=== PATIENT | female | born 1960 | race Caucasian/White ===

== ENCOUNTER 2016-10-31 13:41 | Emergency (ER) | payer OTHER ==
[2016-10-31 13:49] VITALS: BP 120/86
--- NOTE | 2016-10-31 14:17 | UC ---
UC General HPI - HPI Summary HPI Summary: fatigue x 2 weeks hx of SLE , ? flare up of the lupus ? fever, + chills no cold sx, no cough , no abdominal pain , no n/v/d/c no urinary sx - History of Current Complaint Chief Complaint: UCGeneralIllness Stated Complaint: WEAK BODYACHES Time Seen by Provider: 10/31/16 13:50 Hx Obtained From: Patient Hx Last Menstrual Period: n/a Onset/Duration: Gradual Onset, Lasting Weeks - 2, Still Present Onset Severity: Moderate Current Severity: Severe - Allergy/Home Medications Allergies/Adverse Reactions: Allergies Allergy/AdvReac Type Severity Reaction Status Date / Time Nitrofurantoin AdvReac Intermediate stomach Verified 10/31/16 13:49 [From Macrobid] issures Erythromycin AdvReac stomach Verified 10/31/16 13:49 issues nightshade vegetables Allergy Swelling Uncoded 10/31/16 13:49 Of Face,Lips,& Throat Home Medications: Home Medications predniSONE TAB* [Deltasone TAB*] 5 mg PO DAILY 10/31/16 [History Confirmed 10/31] PMH/Surg Hx/FS Hx/Imm Hx - Additional Past Medical History Additional PMH: SLE - Surgical History Surgical History: Yes Surgery Procedure, Year, and Place: leg vein surgery, facial tumor, cervical polyps - Family History Known Family History: Positive: Other - Denies FMH of abscess Negative: Diabetes - Social History Alcohol Use: None Substance Use Type: None Smoking Status (MU): Former Smoker When Did the Patient Quit Smoking/Using Tobacco: in teens. - Immunization History Most Recent Influenza Vaccination: no Review of Systems Constitutional: Fever, Chills, Fatigue Skin: Negative Eyes: Negative ENT: Negative Respiratory: Negative Cardiovascular: Negative Is Patient Immunocompromised?: No All Other Systems Reviewed And Are Negative: Yes Physical Exam Triage Information Reviewed: Yes Appearance: Well-Appearing, No Pain Distress, Well-Nourished Vital Signs: Initial Vital Signs Temp 98.2 F 10/31/16 13:43 Pulse 70 10/31/16 13:43 Resp 16 10/31/16 13:43 BP 120/86 10/31/16 13:43 Pulse Ox 100 10/31/16 13:43 Eye Exam: Normal Eyes: Positive: Conjunctiva Clear ENT Exam: Normal ENT: Positive: Normal ENT inspection, Hearing grossly normal, Pharynx normal Neck exam: Normal Neck: Positive: Supple, Nontender, No Lymphadenopathy Respiratory Exam: Normal Respiratory: Positive: Chest non-tender, Lungs clear, Normal breath sounds Cardiovascular Exam: Normal Cardiovascular: Positive: RRR, No Murmur, Pulses Normal Abdominal Exam: Normal Abdomen Description: Positive: Nontender, Soft. Negative: CVA Tenderness (R), CVA Tenderness (L), Distended, Guarding Bowel Sounds: Positive: Present Musculoskeletal Exam: Normal Musculoskeletal: Positive: Strength Intact, ROM Intact, No Edema Neurological Exam: Normal Neurological: Positive: Alert, Muscle Tone Normal Psychological Exam: Normal Skin Exam: Normal Course/Dx - Differential Dx - Multi-Symptom Provider Diagnoses: FATIGUE Discharge - Discharge Plan Condition: Stable Disposition: HOME Patient Education Materials: Fatigue (ED) Referrals: Summer Murphy PA [Primary Care Provider] - As Soon As Possible Additional Instructions: WILL CHECK CBC, CMP, TSH, MONO , ESR CALL THE OFFICE IN ONE DAY FOR THE RESULTS
[2016-10-31 19:44] LABS: Hematocrit 38 % (35-47); Hemoglobin 12.7 g/dl (12.0-16.0); Mean Corpuscular HGB Conc 33 g/dl (31-36); Mean Corpuscular Hemoglobin 31 pg (27-31); Mean Corpuscular Volume 93 fL (80-97); Mean Platelet Volume 8 um3 (7.4-10.4); Red Blood Count 4.14 10^6/ul (4.0-5.4); Red Cell Distribution Width 14 % (10.5-15); White Blood Count 5.8 10^3/ul (3.5-10.8)
[2016-10-31 19:57] LABS: Albumin 4.4 g/dL (3.2-5.2); BUN/Creatinine Ratio 15.6 (8-20); Calcium 9.7 mg/dL (8.6-10.3); EGFR African American 99.4 (>60); EGFR Non-African American 77.3 (>60); Globulin 2.9 g/dL (2-4); Potassium 4.1 mmol/L (3.5-5.0); Total Bilirubin 0.5 mg/dL (0.2-1.0); Total Protein 7.3 g/dL (6.4-8.9)
[2016-10-31 19:59] LABS: Manual Entry Verification MER0007; Mono Internal Control QC Line Present
[2016-10-31 20:04] LABS: TSH (Thyroid Stimulating Horm) 1.36 mcIU/mL (0.34-5.60)
[2016-10-31 21:05] LABS: Erythrocyte Sed Rate 10 mm/Hr (0-30)
== END 2016-10-31 14:23 | disposition home or self-care (01) ==
LOC: UCCORT 13:41
DX: S42.034A Nondisplaced fracture of lateral end of right clavicle, initial encounter for closed fracture (principal); W19.XXXA Unspecified fall, initial encounter; Y93.9 Activity, unspecified; Y92.9 Unspecified place or not applicable; R53.83 Other fatigue; Z32.02 Encounter for pregnancy test, result negative; F12.90 Cannabis use, unspecified, uncomplicated
CPT/HCPCS: 36415; 80053; 84443; 85025; 85652; 86308; 99211; G0463

== ENCOUNTER 2017-11-20 08:25 | Emergency (ER) | payer OTHER ==
[2017-11-20 08:40] VITALS: BP 130/90
--- NOTE | 2017-11-20 08:54 | UC ---
Respiratory Complaint HPI - HPI Summary HPI Summary: left side chest pain and fever x 1 day + cough , fatigue, no cold symptoms. chest pain is worse with deep breathing , no shortness of breath - History of Current Complaint Chief Complaint: UCChestPain Stated Complaint: FEVER LEFT ARM/SHOULDER/CHEST BACK PAIN Time Seen by Provider: 11/20/17 08:43 Hx Obtained From: Patient Hx Last Menstrual Period: n/a Onset/Duration: Gradual Onset, Lasting Days - 1, Still Present Timing: Constant Severity Initially: Moderate Severity Currently: Moderate Pain Intensity: 7 Character: Cough: Nonproductive Aggravating Factors: Exertion, Deep Breaths Alleviating Factors: Nothing Associated Signs And Symptoms: Positive: Fever, Chills, Pleuritic Chest Pain. Negative: Wheezing, Hemoptysis, Dizziness, Calf Pain, Calf Swelling, Edema, URI , Nasal Congestion, Hoarseness, Sinus Discomfort - Allergies/Home Medications Allergies/Adverse Reactions: Allergies Allergy/AdvReac Type Severity Reaction Status Date / Time erythromycin base Allergy GI Upset Verified 11/20/17 08:38 nitrofurantoin Allergy GI Upset Verified 11/20/17 08:38 nightshade vegetables Allergy Swelling Uncoded 10/31/16 13:49 Of Face,Lips,& Throat Home Medications: Home Medications Acetaminophen [Acetaminophen Extra Strength] 1,000 mg PO Q8H 11/20/17 [History Confirmed 11/20/17] PMH/Surg Hx/FS Hx/Imm Hx - Additional Past Medical History Additional PMH: lupus, fibromyalgia Cardiovascular History: Hypertension - Surgical History Surgical History: Yes Surgery Procedure, Year, and Place: leg vein surgery, facial tumor, cervical polyps - Family History Known Family History: Positive: Other - Denies FMH of abscess Negative: Diabetes - Social History Alcohol Use: None Substance Use Type: None Smoking Status (MU): Former Smoker When Did the Patient Quit Smoking/Using Tobacco: in teens. - Immunization History Most Recent Influenza Vaccination: no Review of Systems Constitutional: Fever, Chills, Fatigue Skin: Negative Eyes: Negative ENT: Negative Respiratory: Cough Cardiovascular: Chest Pain Gastrointestinal: Negative Is Patient Immunocompromised?: No All Other Systems Reviewed And Are Negative: Yes Physical Exam Triage Information Reviewed: Yes Appearance: Well-Appearing, No Pain Distress, Well-Nourished Vital Signs: Initial Vital Signs Temp 98.3 F 10/09/18 08:31 Pulse 97 11/20/17 08:31 Resp 20 11/20/17 08:31 BP 130/90 11/20/17 08:31 Pulse Ox 100 11/20/17 08:31 Vital Signs Reviewed: Yes Eye Exam: Normal Eyes: Positive: Conjunctiva Clear ENT: Positive: Normal ENT inspection, Hearing grossly normal, Pharynx normal Neck exam: Normal Neck: Positive: Supple, Nontender, No Lymphadenopathy Respiratory: Positive: Chest non-tender, No accessory muscle use, Crackles - left lower lungs. Negative: No respiratory distress, Respiratory distress, Decreased breath sounds, Accessory muscle use Cardiovascular: Positive: RRR, No Murmur, Pulses Normal Abdominal Exam: Normal Abdomen Description: Positive: Nontender, Soft Skin Exam: Normal UC Diagnostic Evaluation - Laboratory O2 Sat by Pulse Oximetry: 100 Diagnostic Studies Comment: chest xray : IMPRESSION: QUESTIONABLE CONSOLIDATION INVOLVING SOME OR ALL OF THE RIGHT MIDDLE LOBE WHICH COULD BE. PNEUMONIA IN THE CORRECT CLINICAL SETTING. RECOMMEND EITHER CT OF THE CHEST WITH CONTRAST. FOR SUPERIOR CHARACTERIZATION OR FOLLOW-UP CHEST X-RAY AFTER AN APPROPRIATE COURSE OF. THERAPY TO DETERMINE RESOLUTION. Respiratory Course/Dx - Differential Dx/Diagnosis Provider Diagnoses: pneumonia Discharge - Sign-Out/Discharge Documenting (check all that apply): Patient Departure All imaging exams completed and their final reports reviewed: Yes - Discharge Plan Condition: Stable Disposition: HOME Prescriptions: DOXYcycline CAP(*) [DOXYcycline 100MG CAP(*)] 100 mg PO BID #20 cap Patient Education Materials: Pneumonia (ED) Referrals: Summer Murphy PA [Primary Care Provider] - 5 Days - Billing Disposition and Condition Condition: STABLE Disposition: Home
--- NOTE | 2017-11-20 09:38 | RAD ---
INDICATION: Cough and fever COMPARISON: None TECHNIQUE: PA and lateral views of the chest were obtained. FINDINGS: The heart and mediastinum are normal in size and contour. On the AP view the lungs appear well aerated. On the lateral view there is faint density corresponding to the location of the right middle lobe. There is no evidence of large pleural effusion. Visualized bones are normal for the patient's age. There is no radiographic evidence of free air beneath the diaphragm IMPRESSION: QUESTIONABLE CONSOLIDATION INVOLVING SOME OR ALL OF THE RIGHT MIDDLE LOBE WHICH COULD BE PNEUMONIA IN THE CORRECT CLINICAL SETTING. RECOMMEND EITHER CT OF THE CHEST WITH CONTRAST FOR SUPERIOR CHARACTERIZATION OR FOLLOW-UP CHEST X-RAY AFTER AN APPROPRIATE COURSE OF THERAPY TO DETERMINE RESOLUTION.
== END 2017-11-20 09:56 | disposition home or self-care (01) ==
LOC: UCCORT 08:25
DX: J18.9 Pneumonia, unspecified organism (principal); Z88.1 Allergy status to other antibiotic agents
CPT/HCPCS: 71046; 93005; 99212; G0463

== ENCOUNTER 2018-05-18 14:13 | Emergency (ER) | payer OTHER ==
--- OUTSIDE RECORDS SUMMARY | 2018-05-18 14:23 | XMS REPORT | Continuity of Care Document ---
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 Payers Date Identification Numbers Payment Provider Subscriber Effective: 2017 Policy Number: [id number] [facility] Deena Castillo PayID: [id number] [address] [address] [place] [address] Effective: 2014 Policy Number: [id number] [facility] Mich Castillo Expires: 2017 PayID: [id number] [address] [place] [address] Policy Number: [id number] [facility] Deena Castillo Group Name: [employer] [address] [address] PayID: [id number] [place] [address] Advance Directives Description No Information Available Problems Date Description Provider Status Onset: 03/19/2012 Epidermoid cyst Active Onset: 03/19/2012 Temporomandibular joint disorder Active Onset: 03/19/2012 Essential hypertension Active Onset: 03/19/2012 Raynaud's disease Active Onset: 03/19/2012 Anxiety state Active Family History Date Family Member(s) Observation Comments General Heart/DM/HTN/Lung Cancer Father Father due to ALS Mother Mother due to Dementia Social History Type Date Description Comments Sex Unknown Marital Status 2 Times Lives With Spouse Pets 1 cat Pets 1 dog Hand Dominance Right-handed ETOH Use Rarely consumes alcohol Tobacco Use Reviewed: 12/13/15 Patient has never smoked Recreational Drug Use Never Used Drugs Smoking Status Reviewed: 04/30/18 Patient has never smoked Tattoo/Piercing Pierced ears Allergies, Adverse Reactions, Alerts Date Description Reaction Status Severity Comments 02/15/2018 Potatoes/Tomatoes /Night Shade Veggies Active 02/15/2018 Paroxetine Active 02/15/2018 Nitrofurantoin, Macrocrystals / Active Nitrofurantoin, Monohydrate Medications Medication Date Status Form Strength Qnty SIG Indications Ordering Provider Estrace 06/20 Active Cream 0.1mg/GM Brenden avilez MD [facility] Omeprazole 04/08 Active Tablets 20mg 30tab one pill R05 DR smart daily Brenden avilez MD Valacyclovir HCL 03/31 Active Tablets 500mg 6tabs one tablet B00.89 twice a Castellan day for 3 os, MD kunz Hydroxychloroquine 04/22 Active Tablets 200mg 1 po bid Brenden avilez MD Epipen 2-Darian 04/22 Active Solution 0.3mg/0.3 Auto-Inje ML Brenden ct os, Xyzal 04/22 Active Tablets 5mg 30tab 1 po qd s Brenden avilez MD Xopenex HFA 04/22 Active Aerosol 45mcg/Act 3unit 2 puffs by s mouth Castellan every 4 os, hours as needed Amlodipine Besylate 00 Active Tablets 5mg Unknown /0000 Prilosec OTC 11/28 Hx Tablets 20mg 30tab [address] smart every day Brenden avilez MD 04/30 Doxycycline 11/28 Hx Capsules 100mg 14cap 1 by mouth J18.9 s twice a Castellan - day MD fatmata 04/30 Ciprofloxacin HCL 05/09 Hx Tablets 500mg 20tab 1 by mouth N39.0 s twice a Castellan - day MD fatmata 11/29 Ciprofloxacin HCL 11/21 Hx Tablets 500mg 20tab 1 by mouth N39.0 s twice a Castellan - day MD fatmata 12/12 Augmentin 01/12 Hx Tablets 875-125mg 20tab one twice J20.9 s a day Fitzellan - withfood MD fatmata 04/08 Vagifem 07/14 Hx Tablets 10mcg 627.3 Brenden avilez MD 06/20 Amoxicillin 08/26 Hx Tablets 875mg 20tab 1 by mouth 682.9 s twice a Brenden avilez MD 03/31 Nexium 06/09 Hx Capsules 40mg 30cap [address] smart every day Brenden avilez MD 07/05 Amoxicillin 06/07 Hx Tablets 875mg 20tab 1 po bid 463 bing avilez MD 04/22 Norvasc 03/27 Hx Tablets 2.5mg increased to 5 mgm Castellan - 1 po qd MD fatmata 04/24 Immunizations CPT Code Status Date Vaccine Lot # [id number] Given 07/03/1998 Tetanus And Diptheria (Td) For Adult Use Preservative Free Vital Signs Date Vital Result Comment 04/30/2018 11:02am Height 68 inches 5'8" Weight 142.00 lb BP Systolic Sitting 112 mmHg BP Diastolic Sitting 60 mmHg Respiratory Rate 12 /min Body Temperature 98.8 F BMI (Body Mass Index) 21.6 kg/m2 11/28/2017 10:38am Weight 140.00 lb Heart Rate 88 /min BP Systolic 122 mmHg BP Diastolic 68 mmHg Respiratory Rate 16 /min 05/09/2017 9:28am Weight 138.00 lb BP Systolic 106 mmHg BP Diastolic 70 mmHg Body Temperature 99.0 F 04/24/2017 1:27pm Height 68 inches Weight 138.00 lb BP Systolic 120 mmHg BP Diastolic 60 mmHg Respiratory Rate 12 /min Body Temperature 98.0 F BMI (Body Mass Index) 21.0 kg/m2 11/13/2016 11:38am Weight 139.00 lb BP Systolic 100 mmHg BP Diastolic 60 mmHg 06/20/2016 11:13am Weight 142.00 lb BP Systolic 110 mmHg BP Diastolic 60 mmHg 12/14/2015 2:13pm Weight 138.00 lb BP Systolic 100 mmHg BP Diastolic 60 mmHg Body Temperature 98.4 F 12/13/2015 9:33am Weight 138.00 lb BP Systolic 104 mmHg BP Diastolic 64 mmHg Body Temperature 97.6 F 11/22/2015 3:54pm Weight 138.00 lb BP Systolic 110 mmHg BP Diastolic 88 mmHg 04/08/2015 1:17pm Height 68. inches Weight 134.00 lb Heart Rate 60 /min BP Systolic 108 mmHg BP Diastolic 70 mmHg Respiratory Rate 12 /min Body Temperature 98.8 F BMI (Body Mass Index) 20.4 kg/m2 01/12/2015 8:47am Weight 134.00 lb BP Systolic 108 mmHg BP Diastolic 70 mmHg 09/29/2014 1:26pm Weight 131.00 lb BP Systolic 110 mmHg BP Diastolic 60 mmHg 07/14/2014 11:05am Weight 138.00 lb BP Systolic 110 mmHg BP Diastolic 60 mmHg 04/07/2014 1:49pm Height 68 inches Weight 141.00 lb Heart Rate 68 /min BP Systolic 118 mmHg BP Diastolic 60 mmHg Respiratory Rate 12 /min Body Temperature 98.7 F BMI (Body Mass Index) 21.4 kg/m2 03/31/2014 9:00am Weight 140.00 lb Heart Rate 83 /min BP Systolic 120 mmHg BP Diastolic 76 mmHg Body Temperature 98.6 F 03/03/2014 1:28pm Weight 140.00 lb BP Systolic 120 mmHg BP Diastolic 78 mmHg 02/19/2014 8:40am Weight 139.00 lb BP Systolic 118 mmHg BP Diastolic 80 mmHg Body Temperature 97.3 F 08/26/2013 10:28am Weight 141.00 lb BP Systolic 112 mmHg BP Diastolic 60 mmHg 06/09/2013 4:09pm Weight 145.00 lb BP Systolic 110 mmHg BP Diastolic 68 mmHg Body Temperature 98.9 F 04/22/2012 2:06pm Height 68 inches Weight 138.00 lb Heart Rate 68 /min BP Systolic 118 mmHg BP Diastolic 76 mmHg Respiratory Rate 14 /min Body Temperature 98.8 F BMI (Body Mass Index) 21.0 kg/m2 03/13/2012 11:08am Weight 139.00 lb BP Systolic 110 mmHg BP Diastolic 60 mmHg Body Temperature 98.9 F 06/08/2011 10:28am Weight 140.00 lb Body Temperature 98.7 F 03/27/2011 10:11am Height 67.6 inches Weight 140.00 lb BP Systolic 118 mmHg BP Diastolic 60 mmHg BMI (Body Mass Index) 21.5 kg/m2 Results Test Date Facility Test Result H/L Range Note Laboratory test 05/29/2017 N2N/CCD Import Urine Culture And See Result 1, 2 finding Sensitivities Below Laboratory test 05/09/2017 N2N/CCD Import Urine Culture And See Result 3, 4 finding Sensitivities Below Laboratory test 04/24/2017 N2N/CCD Import Occult Blood Stool Negative finding QN Immunolo Laboratory test 10/31/2016 N2N/CCD Import Erythrocyte Sed 10 mm/Hr 0-30 5, 6 finding Rate Monospot Negative 7 TSH (Thyroid Stimulating Horm) 1.36 mcIU/mL 0.34-5.6 8 CBC Auto Diff 10/31/2016 N2N/CCD Import Abs Basophils 0.1 10^3/uL 0-0.2 Abs Eosinophils 0 10^3/uL 0-0.6 Abs Lymphocytes 1.0 10^3/uL 1-4.8 Abs Monocytes 0.1 10^3/uL 0-0.8 Abs Neutrophils 4.5 10^3/uL 1.5-7.7 Abs Nucleated RBC 0 10^3/uL Basophil % 0.9 % 0-2 Eosinophil % 0.2 % 0-6 Granulocyte % 78.4 % 38-83 Hematocrit 38 % 35-47 Hemoglobin 12.7 g/dL 12-16 Lymphocyte % 18.0 % Low 25-47 Mean Corpuscular HGB Conc 33 g/dL 31-36 Mean Corpuscular Hemoglobin 31 pg 27-31 Mean Corpuscular Volume 93 fL 80-97 Mean Platelet Volume 8 um3 7.4-10.4 Monocyte % 2.5 % 1-9 Nucleated Red Blood Cells % 0 1 Platelet Count 290 10^3/uL 150-450 Red Blood Count 4.14 10^6/uL 4-5.4 Red Cell Distribution Width 14 % 10.5-15 White Blood Count 5.8 10^3/uL 3.5-10.8 Comp Metabolic Panel 10/31/2016 N2N/CCD Import Albumin 4.4 g/dL 3.2-5.2 Albumin/Globulin Ratio 1.5 1 1-3 Alkaline Phosphatase 50 U/L 34-104 Alt 12 U/L 7-52 Anion Gap 6 mmol/L 2-11 Ast 20 U/L 13-39 BUN/Creatinine Ratio 15.6 1 8-20 Blood Urea Nitrogen 12 mg/dL 6-24 Calcium 9.7 mg/dL 8.6-10.3 Chloride 103 mmol/L 101-111 Co2 Carbon Dioxide 29 mmol/L 22-32 Creatinine 0.77 mg/dL 0.51-0.95 Egfr 99.4 1 9 Egfr Non- 77.3 1 Globulin 2.9 g/dL 2-4 Glucose 98 mg/dL 70-100 Potassium 4.1 mmol/L 3.5-5 Sodium 138 mmol/L 133-145 Total Bilirubin 0.50 mg/dL 0.2-1 Total Protein 7.3 g/dL 6.4-8.9 Imaging finding 06/20/2016 N2N/CCD Import thorarcic spine <pending> series Laboratory test 12/20/2015 N2N/CCD Import Urine Culture And See Result 10, 11 finding Sensitivities Below Laboratory test 12/13/2015 N2N/CCD Import Urine Culture And See Result 12, 13 finding Sensitivities Below Laboratory test 11/22/2015 N2N/CCD Import @[facility] Pat Id: [id number] finding @EMR Req #: [id number] 1 Culture If Indicated Comment Culture To Follo <See Note> 14 Source: Urine, Clean Cat <See Note> 15 Urinalysis With Microscopic 11/22/2015 N2N/CCD Import @[facility] Pat Id: [id number] @[facility] Req #: [id number] 1 Source: Urine, Clean Cat <See Note> 16 Urine Amorph Sediment Moderate Urine Bacteria Few Urine Bilirubin - Dipstick Moderate Abnormal Urine Blood Moderate Abnormal Urine Clarity Cloudy Urine Color Red Urine Epithelial Cells Many /lpf 17 Urine Glucose - Dipstick 250 mg/dL High Urine Ketone Trace mg/dL High Urine Leuk Esterase Moderate Abnormal Urine Mucus Small Urine Nitrite - Dipstick Positive Abnormal Urine PH 5.0 1 Low 6.5-7.5 Urine Protein - Dipstick 100 mg/dL High Urine RBC 10-20 rbc/hpf High 0-2 Urine Specific [place] >=1.030 1.01-1.03 Urine Urobilinogen - Dipstick >=8.0 E.U./dL High 0.2-1 Urine WBC > 50 wbc/hpf High 0-7 Liver Function Tests 04/09/2015 N2N/CCD Import Alb/Glob 1.1 ratio Albumin 3.8 g/dL 3.4-5 Alkaline Phosphatase 58 U/L 45-117 Bilirubin,Direct < 0.1 mg/dL 0-0.2 Bilirubin,Indirect 0.2 mg/dL 0-0.9 Bilirubin,Total 0.3 mg/dL 0.2-1 Globulin 3.6 g/dL 1.9-4.3 SGPT/Alt 26 U/L 12-78 Sgot/Ast 17 U/L 15-37 Total Protein 7.4 g/dL 6.4-8.2 LDL Cholesterol Profile 04/09/2015 N2N/CCD Import Cholesterol 208 mg/dL High 18 HDL Cholesterol 96 mg/dL 19 LDL-Cholesterol 105 mg/dL 20 Triglycerides 36 mg/dL 21 CBC W/Automated Diff 04/09/2015 N2N/CCD Import Bas% 1.2 % High 0-1.1 Baso # 0.05 K/uL 0-0.1 Eo% 6.5 % 0-6.6 Eos # 0.26 K/uL 0-0.5 Hematocrit 39.1 % 36-46.1 Hemoglobin 13.0 gm/dL 11.6-15.8 Lymph # 1.53 K/uL Low 1.8-7 Lymph % 38.0 % 17-46.1 Mean Cell Volume 92.9 fl 80.9-99 Mean Corpuscular HGB 30.9 pg 25.9-32.7 Mean Corpuscular HGB Conc 33.2 g/dL 30.8-34.3 Mean Platelet Volume 9.4 fL 8.9-12.4 [place] # 0.31 K/uL 0.3-0.9 [place] % 7.7 % 4.3-13.2 Neut# 1.88 K/uL 1.8-7 Neut% 46.6 % 40.4-72.8 Platelet Count 274 K/uL 155-360 Red Blood Count 4.21 M/uL 3.9-5.4 Red Cell Distri Width %CV 13.1 % 11.7-14.4 Red Cell Distri Width SD 44.0 fl 3-47 White Blood Count 4.0 K/uL 3.1-10.7 Basic Metabolic Panel 04/09/2015 N2N/CCD Import Anion Gap 6 mEq/L Low 8- 16 BUN 16 mg/dL 7-18 BUN/Creat 20.0 ratio Calcium 8.7 mg/dL 8.5-10.1 Carbon Dioxide 28 mmol/L 21-32 Chloride 107 mmol/L 98-107 Creatinine 0.8 mg/dL 0.6-1.3 Glom Filtration Rate, Estimate >60 mL/min Glucose 91 mg/dL 74-106 If >60 mL/min 22 Potassium 4.2 mmol/L 3.5-5.1 Sodium 141 mmol/L 136-145 HSV 1/2 PCR 03/31/2014 N2N/CCD Import HSV-1 Dna Negative HSV-2 Dna Negative 23 Laboratory test 03/31/2014 N2N/CCD Import Herpes Culture See Note 24 finding Urine Culture And 03/24/2014 N2N/CCD Import Urine Culture (See Note) 25 Sensitivities Laboratory test 02/19/2014 N2N/CCD Import Urine Culture See Note 26 finding Laboratory test 09/05/2013 N2N/CCD Import Urine Culture See Note 27 finding Laboratory test 06/09/2013 N2N/CCD Import TSH Reflex FT4 1.46 uIU/mL 0.49-4 28 finding and/or FT3 .67 Laboratory test 03/19/2012 N2N/CCD Import Cyst, Cutaneous See Note 29 finding Laboratory test 06/08/2011 N2N/CCD Import Throat Strep See Note 30 finding Screen Laboratory test 05/23/2011 N2N/CCD Import Antinuclear See patterns 31 finding Antibodies, Ifa Hla-B27 Disease Association See Note 32 Note See Note 33 Rheumatoid Factor Screen Negative Sedimentation Rate 8 mm/hr 0-30 Speckled Pattern 1:80 Uric Acid 1.6 mg/dL Low 2.1-7.4 CBC 05/23/2011 N2N/CCD Import Hematocrit 34.6 % Low 36-46.1 Hemoglobin 11.7 gm/dL 11.6-15.8 Mean Cell Volume 91.1 fl 80.9-99 Mean Corpuscular HGB 30.8 pg 25.9-32.7 Mean Corpuscular HGB Conc 33.8 g/dL 30.8-34.3 Mean Platelet Volume 10.0 fL 8.9-12.4 Platelet Count 260 K/uL 155-360 Red Blood Count 3.80 M/uL Low 3.9-5.4 Red Cell Distri Width %CV 13.1 % 11.7-14.4 White Blood Count 4.9 K/uL 3.1-10.7 Fungal Culture With 04/13/2011 N2N/CCD Import Fungal Culture; Other See Note 34 Smear Sources Fungal Fluorochrome Stain See Note 35 1 [id number] SEE RESULT BELOW Name: DEENA CASTILLO DOB: [address]: Summer BOURGEOIS Acct: [id number] Unit: [id number] AGE: 57 Location: [facility] Re05/29/17 SEX: F Status: REG REF SPEC: [id number] ROLANDO: 05/29/17-[address] [facility] [address]: Summer BOURGEOIS REQ: [id number] RECD: 05/29/17 STATUS: COMP _ SOURCE: URINE SPDESC: ORDERED: Urine Culture COMMENTS: [id number] QUERIES: Urine Source: Random Procedure Result Reported Site Urine Culture Final 06/02/17- 1400 ML Organism 1 ENTEROCOCCUS FAECALIS Lorman Count 25-50,000 (Moderate) CFU/ML Organism 2 BIFIDOBACTERIUM SPECIES Lorman Count 75-100,000 (Many) CFU/ML BIFIDOBACTERIUM SPECIES - PRESUMPTIVE IDENTIFICATION 1. ENTEROCOCCUS FAECALIS M.I.C. RX --------- ------ Ampicillin <=2 S Penicillin 2 S Ciprofloxacin <=0.5 S Gentamicin High Level S Levofloxacin 1 S Linezolid 2 S Nitrofurantoin <=16 S * Quinupristin/Dalfopristin 8 R * Streptomycin High Level S Tetracycline >=16 R Tigecycline <=0.12 S Vancomycin 1 S Imipenem-Deduced S * Ampicillin/Sulbactam-Deduced S CONTINUED ON NEXT PAGE DEPARTMENT OF PATHOLOGY, [address] [place] [address] Nate Pickard M.D. Director [facility] # [id number] Patient: DEENA CASTILLO [id number] (Continued) Specimen: [id number] Collected: 05/29/17 Received: 05/29/17 (Continued) Procedure Result Reported Site Urine Culture Final (continued) * These antibiotics are not available in the [facility] Formulary Contact the Microbiology Department for any additional antibiotic reporting. * ML - [facility] . END OF REPORT DEPARTMENT OF PATHOLOGY, [address] [place] [address] Nate Pickard M.D. Director [facility] # [id number] 3 [id number] SEE RESULT BELOW Name: DEENA CASTILLO : [address]: Summer BOURGEOIS Acct: [id number] Unit: [id number] AGE: 57 Location: [facility] Re05/09/17 SEX: F Status: REG REF SPEC: [id number] ROLANDO: 05/09/17-[address]: Summer BOURGEOIS REQ: [id number] RECD: 05/09/17 STATUS: COMP _ SOURCE: URINE [facility]: ORDERED: Urine Culture COMMENTS: [id number] QUERIES: Urine Source: Random Procedure Result Reported Site Urine Culture Final 05/11/17- 0803 ML Organism 1 ENTEROCOCCUS FAECALIS Lorman Count >100,000 (Many) CFU/ML 1. ENTEROCOCCUS FAECALIS M.I.C. RX --------- ------ Ampicillin <=2 S Penicillin 4 S Ciprofloxacin 1 S Gentamicin High Level S Levofloxacin 1 S Linezolid 2 S Nitrofurantoin <=16 S * Quinupristin/Dalfopristin 8 R * Streptomycin High Level S Tetracycline >=16 R Tigecycline <=0.12 S Vancomycin 1 S Imipenem-Deduced S * Ampicillin/Sulbactam-Deduced S * These antibiotics are not available in the [facility] Formulary Contact the Microbiology Department for any additional antibiotic reporting. * ML - Main Lab . END OF REPORT DEPARTMENT OF PATHOLOGY, [address] [place] [address] Nate Pickard M.D. Director [facility] # [id number] 5 [id number] 9 Because ethnic data is not always readily available, this report includes an eGFR for both -Americans and non- Americans. The National Kidney Disease Education Program (NKDEP) does not endorse the use of the MDRD equation for patients that are not between the ages of 18 and 70, are , have extremes of body size, muscle mass, or nutritional status, or are non- or non-. According to the National Kidney Foundation, irrespective of diagnosis, the stage of the disease is based on the level of kidney function: Stage Description GFR(mL/min/1.73 m(2)) 1 Kidney damage with normal or decreased GFR 90 2 Kidney damage with mild decrease in GFR 60-89 3 Moderate decrease in GFR 30-59 4 Severe decrease in GFR 15-29 5 Kidney failure <15 (or dialysis) 10 [id number] 11 SEE RESULT BELOW Name: DEENA CASTILLO : [address]: Summer BOURGEOIS Acct: [id number] Unit: [id number] AGE: 55 Location: [facility] Re12/20/15 SEX: F Status: REG REF SPEC: [id number] ROLANDO: 12/20/15-[address]: Summer BOURGEOIS REQ: [id number] RECD: 12/20/15935 STATUS: COMP _ SOURCE: URINE SPDESC: ORDERED: Urine Culture COMMENTS: [id number] Procedure Result Reported Site Urine Culture Final 12/21/15- 1618 ML No Growth (<1,000 CFU/mL) * ML - MAIN LAB ([facility]) . END OF REPORT * ML=Testing performed at Main Lab DEPARTMENT OF PATHOLOGY, [address] [place] [address] Nate Pickard M.D. Director [facility] # [id number] 12 [id number] 13 SEE RESULT BELOW Name: DEENA CASTILLO : [address]: Summer BOURGEOIS Acct: [id number] Unit: [id number] AGE: 55 Location: [facility] Re12/13/15 SEX: F Status: REG REF SPEC: [id number] ROLANDO: 12/13/15-[address] [facility] [address]: Summer BOURGEOIS REQ: [id number] RECD: 12/13/15 STATUS: COMP _ SOURCE: URINE SPDESC: ORDERED: Urine Culture COMMENTS: [id number] Procedure Result Reported Site Urine Culture Final 12/14/15- 1229 ML No Growth (<1,000 CFU/mL) * ML - MAIN LAB ([facility]) . END OF REPORT * ML=Testing performed at Main Lab DEPARTMENT OF PATHOLOGY, [address] [place] [address] Nate Pickard M.D. Director [facility] # [id number] CULTURE TO FOLLOW 15 URINE, CLEAN CATCH 16 URINE, CLEAN CATCH 17 POSSIBLE UROGENITAL CONTAMINATION. 18 Reference Guidelines*: Desirable: ........... < 200 mg/dL Borderline High: ..... 200-239 mg/dL High: ................ >=240 mg/dL * The National Cholesterol Education Program (NCEP) 19 Reference Guidelines*: Low HDL: ..... < 40 mg/dL Normal: ..... 40-60 mg/dL Desirable: ... > 60 mg/dL *The National Cholesterol Education Program(NCEP) 20 Reference Guidelines*: Optimal:........... <100 mg/dL Near Optimal....... 100-129 mg/dL Borderline High.... 130-159 mg/dL High............... 160-189 mg/dL Very High.......... >=190 mg/dL * Source: National Cholesterol Education Program (NCEP) 21 Reference Guidelines*: Normal: ............. < 150 mg/dL Borderline High: .... 150-199 mg/dL High: ............... 200-499 mg/dL Very High: .......... > 500 mg/dL * Source: National Cholesterol Education Program (NCEP) 22 Note: Persistent reduction for 3 months or more in an eGFR <60 mL/min/1.73 m2 defines CKD. Patients with eGFR values >/=60 mL/min/1.73 m2 may also have CKD if evidence of persistent proteinuria is present. The original MDRD equation for estimated GFR is not valid for patients less than 18 years of age. Additional information may be found at www.kdoqi.org. 23 This test was developed and its performance characteristics determined by [employer]. It has not been cleared or approved by the U.S. Food and Drug Administration. The FDA has determined that such clearance or approval is not necessary. This test is used for clinical purposes. It should not be regarded as investigational or research. Performed at: [address] [id number] Gamero[employer] Technician: Irvin Braxton MD, Phone: [phone] 24 REFERENCE LAB#: Positive for Herpes simplex virus type-2. Typing was confirmed by monoclonal antibody microscopic immunofluorescence. Performed at: [address] [id number] Gamero[employer] Technician: Flower Ohara MD, Phone: [phone] 25 RUN DATE: 03/26/14 [facility] LAB LIVE PAGE 1 RUN TIME: [address] [place] [id number] Specimen Inquiry Name: DEENA CASTILLO : [address]: Yoel Blandon MD Acct: [id number] Unit: [id number] AGE: 54 Location: [facility] Re03/24/14 SEX: F Status: REG REF SPEC: [id number] ROLANDO: 03/24/[address] [facility] [address]: Yoel Blandon MD REQ: [id number] RECD: 03/24/14 STATUS: JAILYN ARREOLA DR: Summer BOURGEOIS _ [facility] ORDERED: Urine Culture QUERIES: Urine Source: Random Procedure Result Verified Site Urine Culture Final 03/26/14- 1029 ML Organism 1 ESCHERICHIA COLI Lorman Count >100,000 (Many) CFU/ML 1. ESCHERICHIA COLI M.I.C. RX --------- ------ Ampicillin <=2 S Cefazolin <=4 S Cefepime <=1 S Ceftriaxone <=1 S Ciprofloxacin <=0.25 S Gentamicin <=1 S Levofloxacin <=0.12 S Meropenem <=0.25 S Nitrofurantoin <=16 S Tetracycline <=1 S Pipercillin/Tazobactam <=4 S Trimethoprim/Sulfamethoxazole <=20 S Amoxicillin/Clavulanic Acid <=2 S Aztreonam <=1 S Contact the Microbiology Department for any additional antibiotic reporting. END OF REPORT * ML=Testing performed at Main Lab DEPARTMENT OF PATHOLOGY, [address] [place] [address] Nate Pickard M.D. Director [facility] # [id number] 26 Organism 1 ! URETHRAL AN Quantity ! 50,000 - 100,000 CFU/mL 27 COLONY COUNT ! >100,000 CFU/ml Organism 1 ! ENTEROCOCCUS FAECALIS QUANTITY ! MANY Organism 2 ! MIXED URETHRAL AN ENTEROCOCCUS FAECALIS Target Route Dose M.I.C. RX AB COST ------ ----- -------- ------ -- ------ PENICILLIN G 4 S TETRACYCLINE >=16 R NITROFURANTOIN <=16 S AMPICILLIN <=2 S AMOXICILLIN S AMOXICILLIN/CLAVULANATE S AMPICILLIN/SULBACTAM S CIPROFLOXACIN <=0.5 S LEVOFLOXACIN 1 S PIPERACILLIN S VANCOMYCIN 1 S 28 QUERY: Reflex add FT3? QUERY: Reflex add FT4? 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 [place] GROSS Received in formalin labeled, "CYST OF LEFT JAWLINE" is a 0.7 x 0.6 x 0.3 cm. carvalho-brown rubbery tissue with a focal quintana discoloration. Submitted in toto in one block. MANUEL/monika MICROSCOPIC Sections reveal a nodular proliferation of sharply demarcated lobules composed of sheets of shadow cells and basophilic cells. The basophilic cells are small , and have dark nuclei. The eosinophilic shadow cells have a clear central area in place of a nucleus. CLINICAL HISTORY Enlarging tender left jawline mass. PRE OPERATIVE DIAGNOSIS Cystic mass of left jawline. REVIEW CODE CODE: I SHAE Sanchez MD 1526 30 NO BETA STREPTOCOCCI ISOLATED 31 Negative <1:80 Borderline 1:80 Positive >1:80 32 HLA-B*27 Negative This test was performed using PCR (Polymerase Chain Reaction)/SSOP (Sequence Specific Oligonucleotide Probes) technique. SBT (Sequence Based Typing) and/or SSP (Sequence Specific Primers) may be used as supplemental methods when necessary. Please contact [facility] Customer Service at if you have any questions. Director of [facility] Laboratory Dr Asa Bazan, PhD Performed at: [address] [place] [id number] Gameroom Technician: Asa Bazan PhD, Phone: [phone] Performed at: [address] [id number] Gamero[employer] Technician: Kana Osman MD, Phone: [phone] 33 A positive CRISTOBAL result may occur in healthy individuals or be associated with a variety of diseases. See interpre- tation below: Pattern Antigen Detected Suggested Disease Association Homogeneous DNA(ds,ss,), High titers - SLE (Smooth) Histone Speckled Sm, LINOTYPER, SCL-70, SLE,MCTD,Scleroderma,Sjogrens SS-A/SS-B Nucleolar SCL-70, PM-1/SCL High titers Scleroderma Poly- myositis/Scleroderma Overlap Centromere Centromere PSS w/Crest syndrome variable 34 REFERENCE LAB#:[id number] NO YEAST OR FUNGUS ISOLATED AFTER 3 WEEKS. Testing Performed By: Labnaye Moncada, [address] [facility], [place] [address] 35 Hyphae observed Procedures Date Code Description Status 11/28/2017 91541 Noninvasive Ear Or Pulse Oximetry For Oxygen Completed Saturation 07/24/2017 23651 Mammography Unilateral Completed 07/24/2017 [id number] Mammogram Completed 05/21/2017 [id number] Diabetic Retinal Eye Exam Completed 04/18/2016 36186 Pure Tone Hearing Test, Air Completed 12/16/2015 38747 Admin Of Inj Completed 12/15/2015 12284 Admin Of Inj Completed 12/14/2015 05252 Admin Of Inj Completed 04/08/2015 18961 Pure Tone Hearing Test, Air Completed 04/07/2014 56898 EKG Tracing & Interpretation Completed 04/07/2014 41001 Pure Tone Hearing Test, Air Completed 04/22/2012 49465 EKG Tracing & Interpretation Completed 04/22/2012 54497 Pure Tone-Air Condition Only Completed 03/19/2012 12977 Excise Benign Lesion 1.1-2CM Completed Face/Ear/Eyelid/Nose/Lip/Mucous Memb 10/14/2009 25704 Admin Of Inj Completed 09/08/2008 43335 Colonoscopy Flexible Diagnostic Completed 09/08/2008 [id number] Colonoscopy Completed 06/30/2008 70040 Inhalation TX For Acute Airway Obstruction Completed W/Nebulizer/Inhaler 01/18/2006 20260 EKG Tracing & Interpretation Completed Encounters Description No Information Available Plan of Treatment Future Appointment(s):05/05/2019 10:30 am - CHRISTELLE Thomas at [facility] - Summer Murphy [id number] Encounter for general adult medical examination with [id number] Localized edema
[2018-05-18 15:24] VITALS: BP 119/83
--- NOTE | 2018-05-18 16:08 | UC ---
Back Pain HPI - HPI Summary HPI Summary: 58yo woman with history of lupus and cervical spinal stenosis; onset of back pain over the past several days, began day following an incident with her dog where a 60 pound dog jumped up on her back as she leaned over to scoop up her dog. No immediate pain, but had off and on stiffness over the past several days. Works as a hairdresser, with increasing pain and spasm in the mid back, radiating to the right, over the past hours as she was working doing shampoos and coloring. Used naproxen with some relief. Pain exacerbated by arm movements. Hx of RLL pneumonia last year, and also has a hx of UTI's with awareness that she sometimes has hematuria. - History of Current Complaint Chief Complaint: UCBackPain Stated Complaint: BACK PAIN Time Seen by Provider: 05/18/18 15:57 Hx Obtained From: Patient Hx Last Menstrual Period: n/a Onset/Duration: Gradual Onset, Lasting Days - 4 Timing: Intermittent, Lasting Hours Severity Initially: Moderate Severity Currently: Moderate Pain Intensity: 7 Back Pain: Is Diffuse - low thoracic area with some radiation bilaterally. Character: Aching, Spasmodic Aggravating Factor(s): Lifting, Bending, Walking Alleviating Factor(s): Rest, OTC Meds - naproxen relieved pain Associated Signs And Symptoms: Positive: Flank Pain - Risk Factors AAA Risk Factors: Hypertension TAD Risk Factors: Negative Cauda Equina Risk Factors: Negative Epidural Abscess Risk Factors: Negative - Allergies/Home Medications Allergies/Adverse Reactions: Allergies Allergy/AdvReac Type Severity Reaction Status Date / Time erythromycin base AdvReac GI Upset Verified 05/18/18 15:25 nitrofurantoin AdvReac GI Upset Verified 05/18/18 15:25 nightshade vegetables Allergy Swelling Uncoded 10/31/16 13:49 Of Face,Lips,& Throat PMH/Surg Hx/FS Hx/Imm Hx - Additional Past Medical History Additional PMH: lupus Cardiovascular History: Other - mitral valve prolapse and tendency to blood pressure increase Respiratory History: Pneumonia - treated December 2017 GI/ History: Other - hx of UTI's; normal renal function per report. - Surgical History Surgical History: Yes Surgery Procedure, Year, and Place: leg vein surgery, facial tumor, cervical polyps - Family History Known Family History: Positive: Other - Denies FMH of abscess Negative: Diabetes - Social History Alcohol Use: None Substance Use Type: None Smoking Status (MU): Former Smoker When Did the Patient Quit Smoking/Using Tobacco: in teens. - Immunization History Most Recent Influenza Vaccination: no Review of Systems All Other Systems Reviewed And Are Negative: Yes Constitutional: Positive: Chills - earlier today Skin: Positive: Negative Eyes: Positive: Negative ENT: Positive: Negative Respiratory: Positive: Negative Cardiovascular: Positive: Other - increase in leg edema since amlodipine increased Gastrointestinal: Positive: Negative Genitourinary: Positive: Hematuria - possible hematuri in the past, Other - UA with white cells and protein. Negative: Dysuria Motor: Positive: Decreased ROM - in arms, also aware of some tightness in her neck Musculoskeletal: Positive: Arthralgia, Decreased ROM - in neck and arms Neurological: Positive: Headache - off and on this week, none currently Psychological: Positive: Negative Is Patient Immunocompromised?: No Physical Exam Triage Information Reviewed: Yes Appearance: Well-Appearing, Pain Distress - mild to moderate Vital Signs: Initial Vital Signs Temp 97.6 F 05/18/18 15:17 Pulse 67 05/18/18 15:17 Resp 16 05/18/18 15:17 BP 119/83 05/18/18 15:17 Pulse Ox 100 05/18/18 15:17 Eye Exam: Normal ENT: Positive: Normal ENT inspection Dental Exam: Normal Neck: Positive: Supple - some tenderness in trapezius, Nontender Respiratory: Positive: Lungs clear, Normal breath sounds Cardiovascular: Positive: RRR, No Murmur Abdomen Description: Negative: CVA Tenderness (R), CVA Tenderness (L) Musculoskeletal Exam: Other - tenderness in low thoracic spine, paraspinal area to the right. Pain with raising arms overhead. Full rom in the neck. Musculoskeletal: Positive: Strength Intact, ROM Limited @ Neurological: Positive: Alert, Muscle Tone Normal Psychological Exam: Normal Skin Exam: Normal Back Pain Course/Dx - Course Course Of Treatment: flexeril for back pain. Urine culture to be done and will treat if positive. - Differential Dx/Diagnosis Differential Diagnosis/HQI/PQRI: Herniated Disc, Strain Provider Diagnosis: Strain of thoracic back region Discharge - Sign-Out/Discharge Documenting (check all that apply): Patient Departure All imaging exams completed and their final reports reviewed: No Studies - Discharge Plan Condition: Stable Disposition: HOME Prescriptions: Cyclobenzaprine TAB* [Flexeril 10 MG TAB*] 5 mg PO TID PRN #30 tab PRN Reason: Spasms - Back Patient Education Materials: Thoracic Back Strain (ED) Referrals: Summer Murphy PA [Primary Care Provider] - Additional Instructions: Urine culture has been sent, with results available on Sunday the . You will be called if an infection is identified. Use flexeril 5mg as needed for muscle spasm. Increase naproxen to 500mg twice daily for control of pain. Use hot packs to the back to help to relieve spasm. - Billing Disposition and Condition Condition: STABLE Disposition: Home
== END 2018-05-18 17:24 | disposition home or self-care (01) ==
LOC: UCCORT 14:13
DX: S29.012A Strain of muscle and tendon of back wall of thorax, initial encounter (principal); M32.9 Systemic lupus erythematosus, unspecified; M48.02 Spinal stenosis, cervical region; Z88.1 Allergy status to other antibiotic agents; Z91.018 Allergy to other foods; Z87.891 Personal history of nicotine dependence; X50.0XXA Overexertion from strenuous movement or load, initial encounter; Y92.9 Unspecified place or not applicable
CPT/HCPCS: 81003; 87086; 99212; G0463